=== PATIENT | male | born 1960 | race Caucasian/White ===

== ENCOUNTER 2018-12-18 12:00 | Inpatient (IN) ==
--- NOTE | 2018-12-18 15:23 | Cardiology Consult Note ---
Date of Encounter: 12/18/18 Time of Encounter: 15:19 Assessment and Plan (1) Acute UT Current Visit: Yes Status: Acute Typical angina with subtle ST changes, trop of 8 at an outside hospital. R/B/A d/w patient and he agrees to proceed. Continue Heparin IV ACS protocol Qualifiers: Myocardial infarction type: non-ST elevation myocardial infarction Qualified Code(s): I21.4 - Non-ST elevation (NSTEMI) myocardial infarction Discussion w patient/family: The assessment and plan as outlined above was discussed with the patient and/or family members who expressed understanding and agreement. All questions were answered. Thank you for involving us in the care of your patient. Please call with any questions. History of Present Illness Consult date: 12/18/18 Consult reason: NSTEMI Chief complaint: Chest pain History of present illness: Mr. Coreas is a 58 year old male with hx of HTN here with NSTEMI and trops >8 currently chest pain free. Anterolateral subtle ST changes. Typical chest pain RSCP non radiating over last few days severe last night promting him to present to ED. R/B/A d/w patient in regards to a [facility] and he agrees to proceed. Past Med Surg Social Fam HX - Past Medical History Medical history: COPD Additional medical history: RA, Psychiatric history: no psych history - Past Surgical History Surgical History: no surgical history - Social History Smoking Status: Current every day smoker Packs per day: 2 Smokeless Tobacco Status: No Alcohol use: none Drug use: none Medications and Allergies Allergy/AdvReac Type Severity Reaction Status Date / Time No Known Allergies Allergy Verified 12/18/18 15:08 All Systems Review: The remainder of the systems were reviewed and are negative Physical Examination Vital Signs, Last 4 Hours Temp Pulse Resp BP Pulse Ox 12/18/18 15:02 75 12/18/18 15:00 98.7 F 76 10 116/76 97 12/18/18 14:59 94 General: Conversant, No Apparent Distress HEENT: Atraumatic, Normocephaly, Mucus Membranes Moist Neck: No JVD, Normal carotid pulses Cardiac: Reg Rate and Rhythm, Normal S1 and S2, No Murmur Lungs: Normal Breath Sounds, No Wheeze, Rales, Rhonchi Neuro: Alert and responsive, No focal deficits noted Abdomen: Soft, Non-Tender Skin: No rashes noted on visualized skin Musculoskeletal: No Chest Wall Tenderness Extremities: No Clubbing, No Cyanosis, No Edema, Normal Pulses Consult Discharge Plan - Plan Referrals: Dalton Sarkar MD [Primary Care Provider] -
--- NOTE | 2018-12-18 15:38 | Internal Med History&Physical ---
Date of Encounter: 12/18/18 Time of Encounter: 15:38 Internal Medicine - H&P: HPI Chief complaint: chest pain Admitted From: Home Plans for Post Hospital Care: Home History of present illness: Mr. Coreas is a 58 year old male with past medical history of hypertension, COPD, arthritis, rheumatoid arthritis, carpal tunnel came in from [facility] for [place]. Patient had chest pain yesterday night around 10:30 PM and meant to Hospital around 11 where he was found to have elevated troponin 0.2. Patient was started on heparin heparin drip and his cardiology was not available he was transferred here. Patient chest pain resolved after he cut nitroglycerin. Recent chest pain was retrosternal in nature which radiated to his left arm. It was associated with nausea vomiting and diaphoresis. Patient denies any previous cardiac history. Patient does have cough for past few days which is nonproductive. Denies any fevers, chills. Denies any abdominal pain back pain lightheadedness palpitation dizziness or weakness or numbness or tingling. Patient was evaluated after he was transferred. He denies any chest pain currently. Denies any nausea, lightheadedness or dizziness. Has cough with shortness of breath for last few days. Denying any other complaints. Patient not taking any medication at home except albuterol. Past Med Surg Social Fam HX - Past Medical History Medical history: COPD Additional medical history: RA, Psychiatric history: no psych history - Past Surgical History Surgical History: no surgical history - Social History Smoking Status: Current every day smoker Packs per day: 2 Smokeless Tobacco Status: No Alcohol use: none Drug use: none Internal Medicine - H&P: Meds Allergy/AdvReac Type Severity Reaction Status Date / Time No Known Allergies Allergy Verified 12/18/18 15:08 All Systems PM: A 10-system review of systems was performed and is negative for pertinent findings except as documented above in the HPI. - Constitutional Vitals: Temp Pulse Resp BP Pulse Ox 98.7 F 75 10 116/76 97 12/18/18 15:00 12/18/18 15:02 12/18/18 15:00 12/18/18 15:00 12/18/18 15:00 Exam: Constitutional: Vitals as noted. Conversant. No Apparent Distress. Eyes : Sclera white, conjunctiva clear, no lid lag, PEARLA. ENT : Grossly normal hearing. Oropharyngeal exam unremarkable. Moist mucus membranes. No JVD, no cervical lymphadenopathy. no thyromegaly or mass. Respiratory : b/l diffuse rhonchi, No accessory muscle use, rales, rhonchi or wheezes Cardiovascular : RRR, +S1, +S2. no murmur, gallop, rubs. No chest wall tenderness GI/Abdominal : Soft, Non-tender, Non-distended, normal bowel sounds, soft, no peritoneal signs. no orgenomegaly or mass appreciated. no hernia. Musculoskeletal: no deformity noted. no edema or cyanosis. warm extremities, pulses palpable and symmetrical in UE/LE. no calf tenderness. Neurological: AO X3, CN II-XII grossly intact, grossly normal motor and sensory exam. Skin: No skin rash, lesions or ulcers noted. Internal Med - H&P Results - Labs CBC & Chem 7: 12/18/18 17:01 - Assessment and plan (1) NSTEMI (non-ST elevated myocardial infarction) Current Visit: Yes Status: Acute Assessment and plan: - continue patient on heparin drip with ACS protocol - Patient received aspirin before. We will continue aspirin 81 mg daily. - Follow-up echocardiogram - Cardiology consulted. Plan for catheter tomorrow. (2) COPD exacerbation Current Visit: Yes Status: Acute Assessment and plan: - Start patient on steroid, azithromycin and duonebs (3) Rheumatoid arthritis Current Visit: Yes Status: Acute Assessment and plan: - not taking any medication - f/u outpatient Qualifiers: Qualified Code(s): M06.9 - Rheumatoid arthritis, unspecified (4) HTN (hypertension) Current Visit: Yes Status: Acute Assessment and plan: - not taking any medication at home - Monitor BP for now. Will likely be started on betablocker on discharge Qualifiers: Hypertension type: essential hypertension Qualified Code(s): I10 - Essential (primary) hypertension - Time Spent With Patient Total time spent is greater than 50% in coordination of care (as documented) at patient's floor/unit and/or counseling patient:
[2018-12-18] MEDS ORDERED: Ipratropium/Albuterol Neb 3 ML IH PRN (15:51)
[2018-12-18] MEDS ORDERED: *HR* Heparin 5,000 UNIT/ML VIAL IVP ONE (16:47)
[2018-12-18] MEDS ORDERED: *HR* Heparin 5,000 UNIT/ML VIAL IVP PRN ×2 (16:47)
[2018-12-18 17:14] LABS: Hematocrit 44.2 % (37.5-50.1); Hemoglobin 14.7 g/dL (12.9-16.9); Mean Corpuscular HGB Conc 33.3 g/dL (31.6-35.5); Mean Corpuscular Hemoglobin 29.5 pg (28.0-33.3); Mean Corpuscular Volume 88.6 fL (83.0-100.0); Mean Platelet Volume 9.6 fL (9.4-12.4); Platelet Count 257 K/mcL (140-400); Red Blood Count 4.99 M/mcL (4.19-5.50); Red Cell Distribution Width 13.9 % (11.5-14.5)
[2018-12-18 17:29] LABS: Heparin anti-factor XA UFH 0.33 IU/mL (0.30-0.70); Prothrombin Time 11.2 Seconds (9.4-12.1)
[2018-12-18] MEDS: Heparin 25,000 UNIT/500 ML D5W 25,000 UNIT/500 ML BAG IVC SCH (17:30)
[2018-12-18] MEDS: Ipratropium/Albuterol Neb 3 ML IH SCH ×2 (18:34→21:55)
[2018-12-18] MEDS ORDERED: Azithromycin 500 MG in D5% in Water 250 ML IVPB ONE (19:04)
[2018-12-18] MEDS: methylPREDNISolone 125 MG/2 ML VIAL IVP SCH (20:16)
[2018-12-19] MEDS: Ipratropium/Albuterol Neb 3 ML IH SCH ×4 (03:48→21:50)
[2018-12-19 05:55] LABS: BUN/Creatinine Ratio 12 (6-26); Blood Urea Nitrogen 8 mg/dL (6-20); Calcium 9.3 mg/dL (8.6-10.3); Carbon Dioxide 21 mEq/L (23-29); Chloride 107 mEq/L (98-107); Chol/HDL Ratio 4.1 (0-4.9); Cholesterol 190 mg/dL (< 200); Glucose 168 mg/dL (70-105); HDL Cholesterol 46 mg/dL (40-59); LDL Cholesterol,Calculated 132 mg/dL (0-99); Osmolality,Calculated 286 (280-300); Potassium 4.1 mEq/L (3.5-5.1); Sodium 137 mEq/L (136-145); Triglycerides 62 mg/dL (< 150); eGFR For Non-African Americans > 60 (> 60)
[2018-12-19 06:00] LABS: Troponin I 1.14 ng/mL (< 0.04)
[2018-12-19] MEDS: Heparin 25,000 UNIT/500 ML D5W 25,000 UNIT/500 ML BAG IVC SCH (06:29)
[2018-12-19 08:32] LABS: Estimated Average Glucose 126 mg/dl
[2018-12-19 08:47] LABS: Hematocrit 45.2 % (37.5-50.1); Hemoglobin 15.3 g/dL (12.9-16.9); Immature Granulocytes % 0.3 % (0-4); Immature Platelets 3.1 % (1.1-6.1); Lymphocytes # 1.3 K/mcL (0.6-4.6); Mean Corpuscular HGB Conc 33.8 g/dL (31.6-35.5); Mean Corpuscular Hemoglobin 29.7 pg (28.0-33.3); Mean Corpuscular Volume 87.6 fL (83.0-100.0); Mean Platelet Volume 9.5 fL (9.4-12.4); Monocytes # 0.3 K/mcL (0.0-1.3); Monocytes % 4.6 %; Neutrophils # 4.9 K/mcL (1.6-8.9); Platelet Count 269 K/mcL (140-400); Red Blood Count 5.16 M/mcL (4.19-5.50); Red Cell Distribution Width 13.8 % (11.5-14.5); Segmented Neutrophils % 75.1 %
[2018-12-19] MEDS: Aspirin Enteric Coated 81 MG Tablet PO SCH (09:04)
[2018-12-19] MEDS: methylPREDNISolone 125 MG/2 ML VIAL IVP SCH (09:04)
[2018-12-19] MEDS ORDERED: 0.9 % Sodium Chloride 1,000 ML ONE ×2 (09:50→09:51)
[2018-12-19] MEDS ORDERED: Verapamil 5 MG/2 ML VIAL ONE (09:50)
[2018-12-19] MEDS ORDERED: Heparin 1,000 UNITS/500 mL 500 ML ONE (09:50)
[2018-12-19] MEDS ORDERED: ISOVUE-370 200 ML INFUS..BTL ONE (09:51)
[2018-12-19] MEDS ORDERED: Nitroglycerin 1,000 MCG/10 ML VIAL IV ONE (09:51)
[2018-12-19] MEDS ORDERED: *HR* Heparin 10,000 UNIT/10 ML VIAL ONE (09:51)
[2018-12-19] MEDS ORDERED: *HR* Midazolam HCl 2 MG/2 ML VIAL ONE ×2 (10:03→10:13)
[2018-12-19] MEDS ORDERED: *HR* FentaNYL (PF) 100 MCG/2 ML VIAL ONE (10:03)
--- NOTE | 2018-12-19 10:05 | Pre-Sedation Evaluation ---
Pre-sedation evaluation - Pre-sedation checklist Date of procedure: 12/19/18 Procedure: [facility] Recent Vitals: Last Vital Signs Temp 98.2 F 12/19/18 07:09 Pulse 73 12/19/18 09:09 Resp 17 12/19/18 07:09 BP 128/92 12/19/18 07:09 Pulse Ox 96 12/19/18 09:09 H&P (including ROS) documented in medical record: Yes Previous reaction to sedatives/anesthetics: No Dietary Status: NPO after Midnight Dentition: No loose teeth or bridges ASA Classification *see protocol: CLASS II-Mild systemic disease Plan of Care: Pt appropriate candidate for procedure/moderate/conscious sedation, Risks/benefits of procedure/sedation discussed w/ patient/family Cardiac Registry (Cardio Only) - Functional Capacity Functional Capacity: >=4 METS with symptoms - Clincal Frailty Scale Clinical Frailty Scale: Managing Well
[2018-12-19] MEDS ORDERED: Adenosine 90 MG/30 ML MLS IV ONE (10:40)
--- NOTE | 2018-12-19 11:28 | Invasive Diagnostic Lab Proc ---
Name: Aurelio Coreas Date of Study: 12/19/2018 Date: 1960 Ht: 62.0in Medical Record#: [id number] Age: 58 Wt: 143.30lb Gender: Male BSA: 1.66 Order #: [id number] BMI: 26.21 Physicians Procedure Physician: Stevie Morgan MD, [facility] Referring MD: Referring MD: Staff Name Position [facility] Case Manager 09:58 AM Marlene Castro RT (R) Monitor 09:58 AM Hanh Carbajal RT (R) Scrub 09:58 AM Indications Indication Non-Stemi Procedures Performed Procedure L HRT ARTERY/VENTRICLE ANGIO PRQ CARD LIBAN STENT W/ANGIO 1 VSL IV Doppler BLD Flow 1st Vessel Pre-Procedure Checklist Informed consent is complete signed and on chart. H&P is on chart. ID band is on and ID verified with patient. Patient NPO for procedure The procedure was described for the patient and questions were answered. Blood Pressure: 128/92 ECG is on chart. Rhythm: NSR Plan of Care Patient will tolerate the procedure without complications. Adequate level of comfort will be maintained. Hemodynamics will remain stable Patient will recover from procedure without complications. Respiratory function will be maintained. Cardiac rhythm will remain stable. Patient temperature will be maintained. Patient and/or family have verbalized understanding of the procedure. Patient Education Intravenous Access Time IV Size Location DC'd Fluid/Drip Rate Units RN 20g 1 1/4" Patent On Arrival Lt Antecubital 0.9NaCl 20g 1 1/4" Patent On Arrival Rt Arm Allergies No Known Allergies Vital Signs Time BP (mmHg) HR (bpm) O2 Sat. RR (bpm) LOC 09:36 AM 128 / 92 80 97 % 18 5 = Fully awake and oriented or at pre-proc level 10:01 AM / % 5 = Fully awake and oriented or at pre-proc level 10:01 AM / % 5 = Fully awake and oriented or at pre-proc level 10:17 AM / % 4 = Oriented but drowsy 10:32 AM / % 4 = Oriented but drowsy 10:47 AM / % 5 = Fully awake and oriented or at pre-proc level 10:04 AM 162 / 90 67 98 % 19 10:08 AM 113 / 87 84 97 % 16 10:13 AM 122 / 82 87 98 % 12 10:18 AM 134 / 82 72 98 % 10 10:23 AM 122 / 72 77 94 % 8 10:28 AM 117 / 72 81 95 % 7 10:33 AM 129 / 70 79 95 % 25 10:38 AM 111 / 64 73 95 % 19 10:43 AM 120 / 63 71 95 % 10 10:48 AM 124 / 71 60 96 % 6 10:53 AM 122 / 71 71 94 % 16 Procedural Medications Time Medication Dose Units Method Given By 10:01 AM Oxygen 2 L/min nasal cannula Bharati Zavala RN 10:10 AM Versed 2 mg Intravenous Bharati Zavala RN 10:10 AM Fentanyl 50 mcg Intravenous Bharati Zavala RN 10:18 AM Lidocaine 2% 0.5 ml Subcutaneous Stevie Morgan MD, FACC 10:19 AM Heparin 2000 units Nitroglycerin 200 mcg Verapamil 2.5 mg Intraarterial Stevie Morgan MD, FACC 10:24 AM Nitroglycerin 100 mcg Intracoronary Stevie Morgan MD 10:38 AM Nitroglycerin 100 mcg Intracoronary Stevie Morgan MD 10:40 AM 90mg Adenosine in 90 ml 0.9 NS 546 ml/hr Intravenous Bharati Zavala RN 10:51 AM Nitroglycerin 100 mcg Intracoronary Stevie Morgan MD 10:44 AM Aggrastat Bolus: 33 ml Intravenous Bharati Zavala RN 10:45 AM Aggrastat 12.5mg/250ml 12 ml/hr Intravenous Bharati Zavala RN 10:55 AM Plavix 600 mg Orally Bharati Zavala RN Giovanni Score Preprocedure Postprocedure Activity 2- Moves 4 extremities sustained head lift Activity 2- Moves 4 extremities sustained head lift Circulation 2- SBP +/= 20 points of pre-anesthetic level Circulation 2- SBP +/= 20 points of pre-anesthetic level Consciousness 2- Awake and alert oriented x 3 Consciousness 2- Awake and alert oriented x 3 O2 Saturation 2- Able to maintain O2 satruation of 92% on room air O2 Saturation 2- Able to maintain O2 satruation of 92% on room air Respiratory 2- Able to deep breathe and cough well Respiratory 2- Able to deep breathe and cough well Total Score 10 Total Score 10 Contrast Agent: Isovue Diagnostic Contrast: 177 ml Total Contrast: 177 ml Fluoro Dose: 2164 mGy Procedure Log Time Note Enter By 09:48 AM CathStat 09:58 AM Case Start 09:58 AM Sites, Hanh RT (R) Position: Scrub Time in: 09:58 chery 09:58 AM Pt arrived to crown and bridge dental lab technician 2 at 09:58 tsites 09:58 AM Bharati Zavala RN Position: Renal Case Manager Time in: 09:58 tsites 09:58 AM Marlene Castro RT (R) Position: Monitor Time in: 09:58 tsites 09:58 AM Patient charges- Angio tray pack, Navilyst 3mm J, Pulse Oximetry and ACIST tubing and transducer tsites 09:58 AM IV Supplies used: J loop Angio Cath. tsites 09:58 AM Physician arrived 09:58 tsites 09:58 AM Meet and greet completed tsites 09:58 AM Sign in performed according to hospital policy. Informed consent was obtained. tsites 09:58 AM Procedure start 09:58 tsites 09:59 AM Case Delayed No tsites 10:01 AM Hair removed from procedure site in holding area using clippers. Right wrist, Right groin prepped with Chloraprep by Caridad Aguero RT (R), then patient was draped. Skin intact. tsites 10:01 AM Time: 10:01 Oxygen on at 2 L/min per nasal cannula by Bharati Zavala RN tsites 10:01 AM Time: 10:01 Patient comfortable and pain free: Yes tsites 10:01 AM Time: 10:01LOC: 5 = Fully awake and oriented or at pre-proc level tsites 10:02 AM Clinical Presentation: Non-STEMI tsites 10:03 AM Vitals capture started with the following parameters, Patient=Adult, Interval=5 min, Initial Oftsxrvd=711 mmHg, Deflation Rate=5 mmHg, Cuff placed on Right Arm 10:04 AM HR=67 bpm, KZEL=408/90 mmhg, SpO2=98.0 %, Resp=19 B/min, Comment=NSR 10:08 AM HR=84 bpm, XWWY=266/87 mmhg, SpO2=97.0 %, Resp=16 B/min, Comment=NSR 10:10 AM Time: 10:10 Versed 2 mg Intravenous Given by Bharati Zavala RN 10:10 AM Time: 10:10 Fentanyl 50 mcg Intravenous Given by Bharati Zavala RN 10:12 AM Pressure channel 1 zero failed. 10:12 AM Pressure channel 1 zeroed. 10:13 AM HR=87 bpm, CFPU=834/82 mmhg, SpO2=98.0 %, Resp=12 B/min, Comment=NSR 10:16 AM Time: 10: Patient comfortable and pain free: Yes dspellman 10:17 AM Time: 10:LOC: 5 = Fully awake and oriented or at pre-proc level dspellman 10:17 AM Time out was performed according to hospital policy. Conscious sedation and anesthesia was achieved (see medication log with in this report above) dspellman 10:18 AM Time: 10:18 0.5 ml Lidocaine 2% to right radial Subcutaneous Given by Stevie Morgan MD, [facility] dspellman 10:18 AM HR=72 bpm, YEIN=600/82 mmhg, SpO2=98.0 %, Resp=10 B/min, Comment=NSR 10:19 AM Access obtained by percutaneous puncture. 6Fr 10cm Terumo Glidesheath sheath placed in right Radial artery. [id number] dspellman 10:20 AM Time: 10:19 Patient given 2,000 units Heparin, 200 mcg Nitroglycerin, and 2.5 mg Verapamil Intraarterial by Stevie Morgan MD, [facility]. This is given to reduce risk of vessel spasm and thrombosis. dspellman 10:20 AM 5Fr TIG catheter inserted over the wire [facility] dspellman 10:20 AM 0.035 260cm Navilyst 3mmJ wire [id number] dspellman 10:22 AM Recorded Pressure: Ao, HR=88, Condition=Condition 1 (Aorta) Ao 91/69/79 10:22 AM LCA angiography performed in multiple views. dspellman 10:23 AM HR=77 bpm, XGOI=671/72 mmhg, SpO2=94.0 %, Resp=8 B/min, Comment=NSR 10:24 AM Pressure channel 1 zeroed. 10:24 AM Recorded Pressure: Ao, HR=82, Condition=Condition 1 (Aorta) Ao 103/79/92 10:24 AM Time: 10:24 Nitroglycerin 100 mcg Intracoronary Given by Stevie Morgan MD dspellman 10:26 AM RCA angiography performed in multiple views. dspellman 10:26 AM Coronary Dominance: Left dspellman 10:27 AM Lesion found in Distal LMCA. Pre Stenosis: 30 Pre MYLES Flow: 3: Complete and Brisk Flow/Perfusion dspellman 10:27 AM Lesion found in Proximal LAD. Pre Stenosis: 30 Pre MYLES Flow: 3: Complete and Brisk Flow/Perfusion dspellman 10:27 AM Lesion found in Mid LAD. Pre Stenosis: 70 Pre MYLES Flow: 3: Complete and Brisk Flow/Perfusion dspellman 10:27 AM Catheter removed dspellman 10:27 AM 5Fr Pigtail catheter inserted over the wire DNC dspellman 10:28 AM Lesion found in Left PDA. Pre Stenosis: 30 Pre MYLES Flow: 3: Complete and Brisk Flow/Perfusion dspellman 10:28 AM HR=81 bpm, GCPR=830/72 mmhg, SpO2=95.0 %, Resp=7 B/min, Comment=NSR 10:29 AM Catheter crossed the aortic valve and was selectively placed in the left ventricle. Pressures recorded on pullback for left heart catheterization. dspellman 10:29 AM Bolus angiogram of left Ventricle complete: 10 ml/sec for a total of 20 mls dspellman 10:29 AM Recorded Pressure: LV, HR=68, Condition=Condition 1 (Left Ventricle) LV 124/5/14 10:30 AM Recorded Pressure: LV, Ao, HR=82, Condition=Condition 1 (Left Ventricle) LV 105/29/32, (Aorta) Ao 107/67/87 10:31 AM Catheter removed dspellman 10:32 AM Time: 10:17LOC: 4 = Oriented but drowsy dspellman 10:32 AM Time: 10:17 Patient comfortable and pain free: Yes dspellman 10:32 AM Left Main Coronary Artery with 30% stenosis dspellman 10:33 AM Proximal Left Anterior Descending Coronary Artery with 30% stenosis. If graft is supplying this territory, 0 % stenosis. dspellman 10:33 AM Mid/Distal Left Anterior Descending Coronary Artery and diagonal branches with 50% stenosis. If graft is supplying this area, 0 % stenosis dspellman 10:33 AM Right Coronary, Right Posterior Descending Arteries with Right Posterolateral and Acute Marginal branches with 30 % stenosis. If graft is supplying this area, 0 % stenosis dspellman 10:33 AM PCI lesion in Mid LAD. dspellman 10:33 AM HR=79 bpm, XSJI=246/70 mmhg, SpO2=95.0 %, Resp=25 B/min, Comment=NSR 10:34 AM 6Fr RBL 3.5 Convey guide catheter was used to cannulate the PCI vessel successfully. reused? No dspellman 10:35 AM .014 [place] 182cm guide wire across target lesion- successful. reused? No dspellman 10:35 AM Inflation device was opened. dspellman 10:36 AM Recorded Pressure: Ao, HR=75, Condition=Condition 1 (Aorta) Ao 111/76/92 10:37 AM Pressure channel 1 zero failed. 10:38 AM Asist FFR Catheter advanced to target lesion. dspellman 10:38 AM Pressure channel 4 zero failed. 10:38 AM Pressure channel 1 zeroed. 10:38 AM HR=73 bpm, DZWP=399/64 mmhg, SpO2=95 %, Resp=19 B/min 10:39 AM Recorded Pressure: Ao, LV, HR=83, Condition=Condition 1 (Aorta) Ao 109/43/90, (Left Ventricle) LV 101/62/64 10:39 AM Time: 10:38 Nitroglycerin 100 mcg Intracoronary Given by Stevie Morgan MD dspell 10:40 AM Time: 10:40 90mg Adenosine in 90 ml 0.9 NS 546 ml/hr Intravenous Given by Bharati Zavala RN Ilncoln pump dspell 10:40 AM FFR Measurement: 0.74 dspell 10:41 AM Recorded Pressure: Ao, HR=76, Condition=Condition 1 (Aorta) Ao 116/83/98 10:41 AM Flow Wire/Catheter removed intact dspell 10:43 AM HR=71 bpm, AWND=765/63 mmhg, SpO2=95.0 %, Resp=10 B/min, Comment=NSR 10:44 AM 2.25 mm x 12mm NC Emerge balloon across target lesion- successful. reused? No dspell 10:44 AM Time: 10:44 Aggrastat Bolus: 33 ml Intravenous Given by Bharati Zavala RN [place] pump dspell 10:44 AM Balloon inflated @ 12 elvie for 8 seconds dspell 10:45 AM Time: 10:45 Aggrastat 12.5mg/250ml 12 ml/hr Intravenous Given by Bharati Zavala RN [place] pump dspell 10:45 AM Recorded Pressure: Ao, HR=70, Condition=Condition 1 (Aorta) Ao 127/82/102 10:45 AM Balloon catheter removed intact. dspell 10:47 AM Time: 10:32 Patient comfortable and pain free: Yes dspell 10:47 AM Time: 10:32LOC: 4 = Oriented but drowsy dspell 10:48 AM 2.5mm x 16mm Synergy drug-eluting stent across target lesion- successful Lot #[id number] dspell 10:48 AM HR=60 bpm, HMJE=245/71 mmhg, SpO2=96.0 %, Resp=6 B/min, Comment=NSR 10:50 AM Stent deployed @ 12 elvie for 18 seconds dspell 10:51 AM Time: 10:51 Nitroglycerin 100 mcg Intracoronary Given by Stevie Morgan MD dspell 10:52 AM Guide wire removed intact. dspell 10:52 AM Stent delivery system removed intact. ell 10:52 AM Time: 10:52 Plavix 600 mg Orally Given by Bharati Zavala RN dspell 10:53 AM Guide catheter removed intact. ell 10:53 AM Procedure completed at 10:53 12/19/2018 dspell 10:53 AM HR=71 bpm, PMVO=491/71 mmhg, SpO2=94.0 %, Resp=16 B/min, Comment=NSR 10:54 AM Sign out completed: Radiation Dose 342.79 mGy, 2163.69 cGy/cm2 Fluoro Time: 6.0 Isovue 370 - 200ml contrast 177 ml given by Stevie Morgan MD, [facility]. Complications: None. The patient was discharged out of the laborer landscape in stable condition. Sedation minutes 44. Cardiac Rehab Consult needed: Yes. Confirmed administered medications: Yes 11:00 AM Arterial sheath pulled, Vasc Band closure device used and was Successful S/N. dspell 11:00 AM 8 ml air in Vasc Band. dspell 11:00 AM Estimated Blood Loss: minimal dspell 11:00 AM Post ECG NSR dspell 11:00 AM Post Blood Pressure 122/71 dspell 11:00 AM 11:00 Post Pulses Rt Radial 2+ dspell 11:01 AM Information taught Cardiac Cath, PCI, and Vasc Band dspell 11:01 AM Education needs Procedure, Plan of Care, and Obtaining further treatment dspell 11:01 AM Learning barriers :None dspell 11:01 AM Education Methods Verbal dspell 11:01 AM Education evaluation Able to repeat information dspellman 11:01 AM Site status No bleeding/hematoma - Rt Wrist as reported by Sites, Hanh RT (R) at 11:01 dspellman 11:02 AM Time: 10:47LOC: 5 = Fully awake and oriented or at pre-proc level dspell 11:02 AM Time: 10:47 Patient comfortable and pain free: Yes dspellman 11:02 AM Patient out of room: 11:02 dspellman 11:03 AM Family placed in consult room. dspell 11:03 AM Complications: None dspellbroad run 11:14 AM Report given to Magdalena HERNANDEZ Pt taken to ER2S Room #8. 11:13 [facility] Complications Complication None None Hemodynamics Pressures Site Systolic/A Wave Diastolic/V Wave Mean AO 91 69 79 AO 103 79 92 LV 124 5 14 LV 105 29 32 AO 107 67 87 AO 111 76 92 AO 109 43 90 LV 101 62 64 AO 116 83 98 AO 127 82 102 Post Procedure Information Blood Pressure: 122/71 mmHg Rhythm: NSR Post procedural instructions were given Closure Device Time Device Success/Fail 12/19/2018 10:58:00 AM Mechanical Compression Successful Site Checks Time Location Status Staff Sheath In? Note 11:01 AM Rt Wrist No bleeding/hematoma Sites, Hanh RT (R) Pulses Time Site Pre-Procedure Post-Procedure Note Bilateral DP & PT 2+ Bilateral radial 2+ 11:00:00 AM Rt Radial 2+ Updated by Hanh Carbajal, RT (R) on 12/19/2018 11:20:18 AM RT Delia electronically signed on 12/19/2018 11:21:34 AM with status of Final
[2018-12-19] MEDS ORDERED: Tirofiban 12.5 MG/250ML 12.5 MG/250 ML BAG IVC SCH (13:00)
--- NOTE | 2018-12-19 13:33 | Internal Med Progress Note ---
Hospitalist Progress Note - Encounter Date of Encounter: 12/19/18 Time of Encounter: 12:00 - Subjective Interval History: Chest pain-free. Underwent left heart catheterization this morning which revealed severe one-vessel disease status post PCI to mid LAD. Denies nausea/vomiting. Breathing is more comfortable. - Exam Vitals: Temp Pulse Resp BP Pulse Ox 97.5 F L 71 15 141/94 97 12/19/18 13:00 12/19/18 13:27 12/19/18 13:27 12/19/18 13:27 12/19/18 13:27 Exam: General: Alert and oriented, not in acute distress. Cardiovascular:Normal S1 & S2, No JVD. Pulse regular. Lungs: Scattered bilateral wheezes Abdomen:Soft, non-tender, no rigidity. Extremities: R wrist dressing clean, dry, and intact Neurological:Normal cognition and motor skills. Non-focal - Assessment and Plan (1) NSTEMI (non-ST elevated myocardial infarction) Current Visit: Yes Status: Acute Assessment and Plan: underwent LHC with PCI to mLAD today DAPT, statin bb at the time of discharge echo pending appreciate cardiology input (2) COPD exacerbation Current Visit: Yes Status: Acute Assessment and Plan: improing on steroid, azithromycin and duonebs. Continue smoking cessation emphasized (3) HTN (hypertension) Current Visit: Yes Status: Chronic Assessment and Plan: - not taking any medication at home - Monitor BP for now. Will likely be started on betablocker on discharge (4) Tobacco abuse Current Visit: Yes Status: Chronic Assessment and Plan: Smoking cessation emphasized nicotine replacement therapy upon discharge DVT Prophylaxis: EPCD - Time Spent with Patient Total time spent is greater than 50% in coordination of care (as documented) at patient's floor/unit and/or counseling patient: 25 - 35 minutes (Discussed with family members by bedside) Plan of Care Discussed with: patient (Discussed with family members by bedside) Internal Medicine: Result - Labs CBC & Chem 7: 12/19/18 08:40 12/19/18 05:14 Labs: Short CBC 12/18/18 12/19/18 Range/Units 17:01 08:40 WBC 10.4 6.5 (4.3-11.1) K/mcL Hgb 14.7 15.3 (12.9-16.9) g/dL Hct 44.2 45.2 (37.5-50.1) % Plt Count 257 269 (140-400) K/mcL Neutrophils # 4.9 (1.6-8.9) K/mcL BMP 12/19/18 05:14 Sodium 137 Potassium 4.1 Chloride 107 Carbon Dioxide 21 L BUN 8 Creatinine 0.68 L Glucose 168 H Calcium 9.3 Cardiac Enzymes 12/19/18 Range/Units 05:14 Troponin I 1.14 H* (< 0.04) ng/mL - ABG Interpretation ABG results: PT/INR, D-dimer PT 11.2 Seconds (9.4-12.1) 12/18/18 17:01 Consult Discharge Plan - Plan Referrals: Dalton Sarkar MD [Primary Care Provider] - (3) HTN (hypertension) Qualifiers: Hypertension type: essential hypertension Qualified Code(s): I10 - Essential (primary) hypertension
[2018-12-19] MEDS ORDERED: Azithromycin 250 MG in D5% in Water 250 ML IVPB SCH (20:00)
[2018-12-20] MEDS: Ipratropium/Albuterol Neb 3 ML IH SCH ×3 (04:18→16:04)
[2018-12-20 06:07] LABS: Hematocrit 41.4 % (37.5-50.1); Hemoglobin 13.9 g/dL (12.9-16.9)
[2018-12-20 06:16] LABS: BUN/Creatinine Ratio 14 (6-26); Blood Urea Nitrogen 10 mg/dL (6-20); eGFR For Non-African Americans > 60 (> 60)
[2018-12-20] MEDS ORDERED: predniSONE 20 MG TABLET PO SCH (09:00)
[2018-12-20] MEDS ORDERED: Metoprolol XL (24 HR) Succ 25 MG TAB.ER.24H PO SCH (09:30)
--- NOTE | 2018-12-20 09:46 | Cardiology Progress Note ---
Date of Encounter: 12/20/18 Time of Encounter: 09:44 Assessment and Plan (1) NSTEMI (non-ST elevated myocardial infarction) Current Visit: Yes Status: Acute Troponin >8 at outside hospital, 1.14 at [facility]. TTE EF 60%, mild cLVH, normal RV, no significant valvular dysfunction. [facility] severe 1 vessel CAD. EF 65%. FFR 0.74. Successful PTCA/LIBAN to mLAD. DAPT (ASA and Plavix) uninterrupted x 1 year. Pt verbalizes understanding. Continue Statin, BB. Right radial access site healing well. No bleeding, hematoma or ecchymosis noted. Restrictions discussed. Cardiac rehab ordered. Cardiology signing off. Reconsult PRN. Will coordinate outpt follow-up in 1 week. Discussion w patient/family: The assessment and plan as outlined above was discussed with the patient and/or family members who expressed understanding and agreement. All questions were answered. Thank you for involving us in the care of your patient. Please call with any questions. I will discuss all the above with Dr. De Leon and make changes as necessary. Subjective Principal diagnosis: NSTEMI Interval history: Pt denies acute complaints this AM--denies chest pain or dyspnea. Objective Vital Signs, Last 4 Hours Temp Pulse Resp BP Pulse Ox 12/20/18 07:23 98.3 F 67 16 131/81 94 Vital Signs Temp Pulse Resp BP Pulse Ox 12/20/18 07:23 98.3 F 67 16 131/81 94 12/20/18 04:06 98.2 F 57 18 111/66 95 12/19/18 23:56 98.5 F 68 17 101/66 95 12/19/18 21:52 16 97 12/19/18 20:20 99.2 F 77 16 133/78 95 12/19/18 15:41 12 95 12/19/18 15:00 98.3 F 84 21 110/69 94 12/19/18 14:51 98.9 F 85 18 109/83 94 12/19/18 14:08 98.5 F 71 24 94 12/19/18 13:27 71 15 141/94 97 12/19/18 13:00 97.5 F L 75 14 147/88 98 12/19/18 12:36 97.8 F 63 17 139/90 98 12/19/18 12:15 65 17 132/85 97 12/19/18 12:03 78 18 125/85 93 12/19/18 11:45 98.5 F 67 16 132/81 94 12/19/18 11:25 98.0 F 71 17 122/78 92 Intake and Output 12/19/18 12/20/18 12/20/18 23:59 07:59 15:59 Intake Total 353 / 353 0 / 0 360 / 360 Output Total 0 / 0 1150 / 1150 Balance 353 / 353 -1150 / -1150 360 / 360 Intake: IV Fluids 353 / 353 Aggrastat 12.5 MG/250 ML 12.5 103 / 103 mg In 250 ml @ 0.15 MCG/KG/MIN 11.682 mls/hr IVC .[id number] ELIAN Rx#:[id number] Zithromax 250 mg In Dextrose 5% 250 / 250 250 ML @ 252 mls/hr IVPB Q24H ELIAN Rx#:[id number] Oral 0 / 0 0 / 0 360 / 360 Output: Urine 0 / 0 1150 / 1150 Other: Meal Breakfast Percent of Meal Consumed 100% Weight 64.9 kg 64.9 kg Patient Weight 12/20/18 23:59 Weight 64.9 kg General: Conversant, No Apparent Distress HEENT: Atraumatic, Normocephaly, Mucus Membranes Moist Neck: No JVD, Normal carotid pulses Cardiac: Reg Rate and Rhythm, Normal S1 and S2, No Murmur Lungs: Normal Breath Sounds, No Wheeze, Rales, Rhonchi Neuro: Alert and responsive, No focal deficits noted Abdomen: Soft, Non-Tender Skin: Other (right radial access site healing well. No bleeding, hematoma or ecchymosis noted.) Musculoskeletal: No Chest Wall Tenderness Extremities: No Clubbing, No Cyanosis, No Edema, Normal Pulses Results 12/20/18 05:39 12/20/18 05:39 Lab Results 12/20/18 12/20/18 05:39 05:39 Hgb 13.9 Hct 41.4 Plt Count 252 BUN 10 Creatinine 0.70 Short CBC 12/20/18 Range/Units 05:39 Hgb 13.9 (12.9-16.9) g/dL Hct 41.4 (37.5-50.1) % Plt Count 252 (140-400) K/mcL [facility] 12/20/18 Range/Units 05:39 BUN 10 (6-20) mg/dL Creatinine 0.70 (0.70-1.30) mg/dL Impressions Echocardiogram 12/19/18 08:00 Impressions: LVEF 60%. Normal LV chamber size and function. Normal left ventricular diastolic function. Mild concentric left ventricular hypertrophy. Normal right ventricular structure and function. Unable to estimate RVSP due to lack of TR jet. No significant valvular dysfunction. Left Ventricular Wall Motion: Rest Echo Findings All wall segments showed normal motion. Findings: Study Quality * Technically adequate exam. ECG Findings * Normal sinus rhythm. Left Ventricle * LVEF 60%. * Normal LV chamber size and function. * Normal left ventricular diastolic function. * Mild concentric left ventricular hypertrophy. Right Ventricle * Normal right ventricular structure and function. Left Atrium * Normal left atrial size. Right Atrium * Normal right atrial size. Interatrial Septum * No evidence of PFO by color Doppler. Aortic Valve * No aortic regurgitation. * No aortic stenosis. * Aortic valve not well visualized. Mitral Valve * Normal mitral valve structure. * No mitral regurgitation. * No mitral stenosis. Tricuspid Valve * Normal tricuspid valve structure. * Trace tricuspid regurgitation. * Unable to estimate RVSP due to lack of TR jet. * No tricuspid stenosis. Pulmonic Valve * No pulmonic regurgitation. Aorta * Normally sized aortic root. Pericardium * The pericardium appears normal. IVC * The IVC is not well evaluated. Pulmonary Artery * Normal visualized portions of the main pulmonary artery. Active Medications Albuterol/Ipratropium (Duoneb) 3 ml IH [id number] [facility] Stop: 06/19/19 16:01 Last Admin: 12/20/18 04:18 Dose: Not Given Albuterol/Ipratropium (Duoneb) 3 ml IH [id number] PRN PRN Reason: Shortness Of Breath/Wheezing Stop: 06/19/19 15:52 Aspirin (Aspirin Ec) 81 mg PO DAILY [facility] Stop: 06/20/19 09:01 Last Admin: 12/19/18 09:04 Dose: 81 mg Atorvastatin Calcium (Lipitor) 40 mg PO HS [facility]IAN Stop: 06/19/19 21:01 Last Admin: 12/19/18 20:31 Dose: 40 mg Clopidogrel Bisulfate (Plavix) 75 mg PO DAILY [facility] Stop: 06/21/19 09:01 Azithromycin 250 mg/ Dextrose 250 mls @ 252 mls/hr IVPB Q24H [facility] Stop: 06/20/19 20:01 Last Infusion: 12/19/18 22:13 Dose: Infused Metoprolol Succinate (Toprol Xl) 25 mg PO DAILY [facility] Stop: 06/21/19 09:31 Prednisone (Prednisone) 40 mg PO DAILY [facility] Stop: 06/21/19 09:01 - Imaging and Cardiology Echo: report reviewed Cardiac cath: report reviewed - EKG Interpretation EKG results cardiology: other (12 hr tele AVG HR 64, SR) Consult Discharge Plan - Plan Referrals: Dalton Sarkar MD [Primary Care Provider] -
[2018-12-20] MEDS: Aspirin Enteric Coated 81 MG Tablet PO SCH (10:10)
--- NOTE | 2018-12-20 11:07 | Discharge Summary ---
- NOTES TO OUTPATIENT PROVIDER Notes to Outpatient Provider: Patient with history of COPD, tobacco abuse, hyperlipidemia, was admitted for NSTEMI. Trop trended up to 1.14 and underwent LHC uneventfully on 12/19 with PCI to mLAD. Also treated for mild COPD exacerbation and will complete a total of 5 days of azithromycin and steroid. Smoking cessation emphasized. Orders not resulted at time of discharge: Pending orders 12/19/18 12:52 ECG 12 lead ECG [ECG] Stat 12/20/18 06:00 ECG 12 lead ECG [ECG] AM 0600 Date of Encounter: 12/20/18 Time of Encounter: 08:15 - Discharge Diagnosis (1) NSTEMI (non-ST elevated myocardial infarction) Priority: Primary Status: Acute (2) COPD exacerbation Priority: Secondary Status: Acute (3) HTN (hypertension) Priority: Secondary Status: Chronic Qualifiers: Hypertension type: essential hypertension Qualified Code(s): I10 - Essential (primary) hypertension (4) Tobacco abuse Priority: Secondary Status: Chronic Hospital course: Mr. Coreas is a 58 year old male with history of COPD, tobacco abuse, hyperlipidemia, who was admitted for NSTEMI. Trop trended up to 1.14 and underwent LHC uneventfully on 12/19 with PCI to mLAD. Also treated for mild COPD exacerbation and will complete a total of 5 days of azithromycin and steroid. DAPT, bb, statin started for the patient. Smoking cessation emphasized. Cardiology follow up outpatient. Discharge discussed with: patient, nurse, immigration consultant - Time Spent with Patient Total time spent providing and/or coordinating discharge services: 31 mins - Discharge Medications Prescriptions: Aspirin Enteric Coated [Aspirin EC] 81 mg PO DAILY #30 tablet. Atorvastatin [Lipitor] 40 mg PO HS #30 tablet Azithromycin 250 mg PO DAILY 3 Days #3 tablet Clopidogrel [Plavix] 75 mg PO DAILY #30 tablet Metoprolol XL (24 HR) Succ [Toprol Xl] 25 mg PO DAILY #30 tab.er.24h predniSONE [PredniSONE] 40 mg PO DAILY 3 Days #6 tablet Home Medications: Albuterol Neb [Proventil Neb] 1 unit IH Q4-6H PRN 12/19/18 [History] Albuterol Sulfate [Ventolin Hfa] 2 puff IH QID PRN 12/19/18 [History] Aspirin Enteric Coated [Aspirin EC] 81 mg PO DAILY #30 tablet. 12/20/18 [Rx] Atorvastatin [Lipitor] 40 mg PO HS #30 tablet 12/20/18 [Rx] Azithromycin 250 mg PO DAILY 3 Days #3 tablet 12/20/18 [Rx] Clopidogrel [Plavix] 75 mg PO DAILY #30 tablet 12/20/18 [Rx] Metoprolol XL (24 HR) Succ [Toprol Xl] 25 mg PO DAILY #30 tab.er.24h 12/20/18 [Rx] predniSONE [PredniSONE] 40 mg PO DAILY 3 Days #6 tablet 12/20/18 [Rx] Allergies/Adverse Reactions: Allergy/AdvReac Type Severity Reaction Status Date / Time No Known Allergies Allergy Verified 12/18/18 15:08 Date of admission: 12/18/18 15:38 Primary care physician: Dalton Sarkar MD Consults: 12/19/18 12:52 Consult to Cardiac Rehabilitation-Phase1 [CONS] Routine Comment: Reason for Consult: post op PCI Call Completed: Yes 12/20/18 07:54 Consult to Cardiology [CONS] Routine Comment: Consulting Provider: Cardiology Saadia Reason for Consult: NSTEMI Call Completed: Yes - Constitutional Vitals: Temp Pulse Resp BP Pulse Ox 98.3 F 67 16 131/81 94 12/20/18 07:23 12/20/18 07:23 12/20/18 07:23 12/20/18 07:23 12/20/18 07:23 Exam: General: Alert and oriented, not in acute distress. Cardiovascular:Normal S1 & S2, No JVD. Pulse regular. Lungs: Clear to auscultation Abdomen:Soft, non-tender, no rigidity. Extremities: R wrist dressing clean, dry, and intact Neurological:Normal cognition and motor skills. Non-focal - Patient Status Disposition: Home, Self-Care Condition: Fair Functional capacity at discharge: independent ambulation Overall status at discharge: patient is progressing back to baseline - Discharge Instructions Instructions: Chronic Obstructive Pulmonary Disease (DC), Chronic Hypertension (DC) Follow Up With: Dalton Sarkar MD [Primary Care Provider] - Forms: Work/School Release Additional Instructions: DAPT, bb, statin started for the patient. Cardiology follow up outpatient. Complete a total of 5 days of azithromycin and steroid. Smoking cessation emphasized. - Diet and Activity Activity: resume usual activities as tolerated Diet: low salt diet
[2018-12-20 15:07] VITALS: BP 125/73
== END 2018-12-20 16:44 | disposition home or self-care (01) | DRG 247 ==
LOC: 2SOUTHHOLD → SUATTDRO 15:38 → 2NENU 12-19 19:41
PROVIDERS: ADMIT Internal Medicine; ATTEND Internal Medicine